=== PATIENT | female | born 1960 | race African-American/Black ===

== ENCOUNTER 2018-10-03 19:28 | Inpatient (IN) | payer OTHER, MEDICAID ==
[~2018-10-03] VITALS: Ht 160 cm; Wt 64.1 kg
[~2018-10-03 19:28] MED LIST: IBUP-779
[2018-10-03 23:37] LABS: CHLORIDE 109 mEq/L (98-107)
[2018-10-03 23:41] LABS: ETHANOL BLOOD < 10 mg/dL
[2018-10-03 23:44] LABS: LDL CHOLESTEROL 127 mg/dL (5-100)
[2018-10-03 23:48] LABS: BASOPHILS % 0.6 % (0.0-2.0); EOSINOPHILS % 2.6 % (0.0-5.0); HEMATOCRIT. 43.8 % (36.0-48.0); HEMOGLOBIN. 14.8 g/dL (12.0-16.0); LYMPHOCYTES % 46.3 % (20.0-50.0); MEAN CORPUSCULAR HEMOGLOBIN 29.8 pg (28.0-32.0); MEAN PLATELET VOLUME 7.7 fl (7.4-10.4); MONOCYTES % 5.9 % (2.0-8.0); NEUTROPHILS % 44.6 % (40.0-76.0); PLATELET 235 x1000/uL (130-400); RED BLOOD CELL COUNT 4.98 mill/uL (4.2-5.4)
[2018-10-04] MEDS ORDERED: ASPIRIN 81MG TABLET PO ONE (01:45)
[2018-10-04 02:37] LABS: CLARITY URINE CLEAR (CLEAR); COLOR URINE YELLOW (YELLOW); KETONES URINE NEGATIVE (NEGATIVE); LEUKOCYTE ESTERASE URINE NEGATIVE (NEGATIVE); NITRITE URINE NEGATIVE (NEGATIVE); OCCULT BLOOD URINE NEGATIVE (NEGATIVE); PH URINE 5.5 (4.5-8.0); PROTEIN URINE NEGATIVE (NEGATIVE); UROBILINOGEN URINE 0.2 E.U./dL (0.2-1.0)
[2018-10-04 02:48] LABS: *AMPHETAMINES SCREEN URINE NEGATIVE (NEGATIVE); *BARBITURATES SCREEN URINE NEGATIVE (NEGATIVE); *BENZODIAZEPINES SCREEN URINE NEGATIVE (NEGATIVE); *COCAINE SCREEN URINE PRESUMTIVE POSITIVE (NEGATIVE); METHADONE URINE SCREEN NEGATIVE (NEGATIVE)
[2018-10-04 02:49] LABS: CANNABINOID URINE SCREEN NEGATIVE (NEGATIVE); OPIATES URINE SCREEN NEGATIVE (NEGATIVE); PHENCYCLIDINE URINE SCREEN NEGATIVE (NEGATIVE)
[2018-10-04 03:32] VITALS: BP 107/73
[2018-10-04 03:35] VITALS: BP 107/73
[2018-10-04] MEDS ORDERED: ACETAMINOPHEN 325MG TABLET PO PRN (05:00)
[2018-10-04] MEDS ORDERED: ONDANSETRON HCL 4MG/2ML INJ IV PRN (05:00)
[2018-10-04] MEDS ORDERED: CLONIDINE 0.1MG TABLET PO PRN (05:00)
[2018-10-04] MEDS ORDERED: DOCUSATE SODIUM 100MG CAPSULE PO PRN (05:00)
[2018-10-04] MEDS ORDERED: MAGNESIUM/ALUMINUM HYDROXIDE/SIMETHICONE 30ML UDC PO PRN (05:00)
[2018-10-04] MEDS ORDERED: HYDROCODONE/ACETAMINOPHEN 5/325MG TABLET PO PRN (05:00)
[2018-10-04] MEDS ORDERED: GUAIFENESIN 200MG/10ML SUGAR FREE UDC PO PRN (05:00)
[2018-10-04 08:00] VITALS: BP 111/61
[2018-10-04] MEDS ORDERED: ASPIRIN 81MG EC TABLET PO SCH (09:00)
[2018-10-04 12:00] VITALS: BP 111/65
[2018-10-04 13:48] VITALS: BP 111/65
[2018-10-04] MEDS ORDERED: ATORVASTATIN CALCIUM 10MG TABLET PO SCH ×2 (21:00)
== END 2018-10-04 14:20 | disposition home or self-care (01) | DRG 948 ==
LOC: ER 19:28 → EDBEDREQ 23:58 → EDBEDREQTM 23:58 → EDBEDREQSVC 23:58 → 6WST 10-04 01:15 → EDBEDREQTM 10-04 01:22 → EDBEDREQDT 10-04 01:22 → EDBEDREQ 10-04 01:22 → ENRESERV 10-04 02:38
PROVIDERS: ADMIT Hospitalist; ATTEND Hospitalist
DX: R53.1 Weakness (principal); R20.0 Anesthesia of skin; E78.5 Hyperlipidemia, unspecified; F19.10 Other psychoactive substance abuse, uncomplicated; F17.200 Nicotine dependence, unspecified, uncomplicated; Z90.49 Acquired absence of other specified parts of digestive tract; Z71.51 Drug abuse counseling and surveillance of drug abuser
CPT/HCPCS: 36415; 70551; 71045; 80305; 80320; 81003; 83721; 84484; 93005; 93970; 99285; G0480

== ENCOUNTER 2019-07-19 14:52 | Inpatient (IN) | payer MEDICAID, OTHER ==
[~2019-07-19] VITALS: Ht 162.6 cm; Wt 59.9 kg
[2019-07-19] MEDS ORDERED: HYDROCODONE/ACETAMINOPHEN 5/325MG TABLET PO STA (16:08)
[2019-07-19] MEDS ORDERED: SODIUM CHLORIDE 0.9% 1,000 ML IV ONE (16:08)
[2019-07-19] MEDS ORDERED: KETOROLAC 30MG/ML VIAL IV STA (16:08)
[2019-07-19] MEDS ORDERED: VANCOMYCIN 1 G PREMIX 200 ML IV ONE (16:15)
[2019-07-19] MEDS ORDERED: PIPERACILLIN/TAZ 3.375G PREMIX 50 ML IV ONE (16:15)
[2019-07-19 17:33] LABS: BASOPHILS % 0.4 % (0.0-2.0); EOSINOPHILS % 0.4 % (0.0-5.0); HEMATOCRIT. 40.1 % (36.0-48.0); HEMOGLOBIN. 13.6 g/dL (12.0-16.0); LYMPHOCYTES % 23.3 % (20.0-50.0); MEAN CORPUSCULAR VOLUME 88.2 fL (81.0-99.0); MEAN PLATELET VOLUME 7.5 fl (7.4-10.4); MONOCYTES % 7.8 % (2.0-8.0); NEUTROPHILS % 68.1 % (40.0-76.0); PLATELET 231 x1000/uL (130-400); RED BLOOD CELL COUNT 4.55 mill/uL (4.2-5.4); RED CELL DISTRIBUTION WIDTH 13.8 % (11.6-14.6)
[2019-07-19 17:36] LABS: CHLORIDE 103 mEq/L (98-107)
[2019-07-19 17:37] LABS: INR 1.1; PROTHROMBIN TIME 11.7 sec (9.6-11.0)
[2019-07-20] VITALS: BP 121/78
[2019-07-20] MEDS ORDERED: MORPHINE SULFATE 2 MG/ML CPJ (NOT FOR IM USE) IV PRN (00:15)
[2019-07-20] MEDS ORDERED: ACETAMINOPHEN 325MG TABLET PO PRN (00:15)
[2019-07-20 00:28] VITALS: BP 121/78
[2019-07-20] MEDS ORDERED: AMPICILLIN SOD/SULBACTAM NA 3 G in SODIUM CHLORIDE 0.9% 100 ML IV SCH (01:00)
[2019-07-20 04:00] VITALS: BP 138/92
[2019-07-20] MEDS: AMPICILLIN SOD/SULBACTAM NA 3 G in SODIUM CHLORIDE 0.9% 100 ML IV SCH ×2 (05:20→12:16)
[2019-07-20 12:00] VITALS: BP 133/73
[2019-07-20] MEDS: LINEZOLID 600 MG PREMIX 300 ML IV SCH (15:26)
[2019-07-20] MEDS ORDERED: TETANUS AND DIPHTHERIA TOX/PF 0.5ML SYR (ADULT) IM ONE (17:15)
[2019-07-20 20:00] VITALS: BP 131/92
[2019-07-20] MEDS ORDERED: HYDROCODONE/ACETAMINOPHEN 5/325MG TABLET PO PRN (21:00)
[2019-07-20 22:00] LABS: BASOPHILS % 0.5 % (0.0-2.0); EOSINOPHILS % 0.1 % (0.0-5.0); HEMATOCRIT. 39.2 % (36.0-48.0); HEMOGLOBIN. 13.9 g/dL (12.0-16.0); LYMPHOCYTES % 19.8 % (20.0-50.0); MEAN CORPUSCULAR VOLUME 87.2 fL (81.0-99.0); MEAN PLATELET VOLUME 6.8 fl (7.4-10.4); MONOCYTES % 10.4 % (2.0-8.0); NEUTROPHILS % 69.2 % (40.0-76.0); PLATELET 235 x1000/uL (130-400); RED BLOOD CELL COUNT 4.49 mill/uL (4.2-5.4); RED CELL DISTRIBUTION WIDTH 13.2 % (11.6-14.6)
[2019-07-21] VITALS: BP 117/80
[2019-07-21 01:13] LABS: *AMPHETAMINES SCREEN URINE NEGATIVE (NEGATIVE); *BARBITURATES SCREEN URINE NEGATIVE (NEGATIVE); *BENZODIAZEPINES SCREEN URINE NEGATIVE (NEGATIVE)
[2019-07-21 01:14] LABS: *COCAINE SCREEN URINE PRESUMTIVE POSITIVE (NEGATIVE); CANNABINOID URINE SCREEN NEGATIVE (NEGATIVE); METHADONE URINE SCREEN NEGATIVE (NEGATIVE); OPIATES URINE SCREEN NEGATIVE (NEGATIVE); PHENCYCLIDINE URINE SCREEN NEGATIVE (NEGATIVE)
[2019-07-21 04:00] VITALS: BP 120/77
[2019-07-21] MEDS: LINEZOLID 600 MG PREMIX 300 ML IV SCH ×2 (05:08→17:33)
[2019-07-21 12:00] VITALS: BP 114/60
[2019-07-21 16:00] VITALS: BP 130/73
[2019-07-21 20:00] VITALS: BP 105/74
[2019-07-22] VITALS: BP 112/69
[2019-07-22 04:00] VITALS: BP 110/63
[2019-07-22] MEDS: LINEZOLID 600 MG PREMIX 300 ML IV SCH ×2 (05:33→17:29)
[2019-07-22 08:00] VITALS: BP 114/68
[2019-07-22 12:00] VITALS: BP 109/62
[2019-07-22 16:00] VITALS: BP 111/67
== END 2019-07-22 19:05 | disposition left against medical advice (07) | DRG 383 ==
LOC: ER 14:52 → EDBEDREQSVC 20:49 → EDBEDREQ 20:49 → EDBEDREQTM 20:49 → UNDOADMIN 21:02 → 6EST 21:02 → MICUSO 21:02
PROVIDERS: ADMIT Internal Medicine; ATTEND Internal Medicine
DX: L03.114 Cellulitis of left upper limb (principal); E44.1 Mild protein-calorie malnutrition; F12.90 Cannabis use, unspecified, uncomplicated; Z53.29 Procedure and treatment not carried out because of patient's decision for other reasons; Z20.828 Contact with and (suspected) exposure to other viral communicable diseases; F14.90 Cocaine use, unspecified, uncomplicated; Z88.1 Allergy status to other antibiotic agents; Z90.49 Acquired absence of other specified parts of digestive tract; Z68.22 Body mass index [BMI] 22.0-22.9, adult; Z71.51 Drug abuse counseling and surveillance of drug abuser
CPT/HCPCS: 36415; 73130; 80053; 80305; 85025; 90714; 93005; 96365; 99285; J0295; J1885; J2020; J2270; J2543; J3370; J7030; J7050; U0003-CS

== ENCOUNTER 2020-10-22 17:57 | Emergency (ER) | payer MEDICAID ==
[~2020-10-22] VITALS: Ht 160 cm; Wt 69.0 kg
[2020-10-23 04:00] VITALS: BP 122/74
[2020-10-23] MEDS ORDERED: ACET-2708 MT (04:36)
== END 2020-10-23 04:11 | disposition home or self-care (01) ==
LOC: ER 17:57
DX: S06.9X0A Unspecified intracranial injury without loss of consciousness, initial encounter (principal); S16.1XXA Strain of muscle, fascia and tendon at neck level, initial encounter; S20.219A Contusion of unspecified front wall of thorax, initial encounter; T40.5X5A Adverse effect of cocaine, initial encounter; I10 Essential (primary) hypertension; F17.210 Nicotine dependence, cigarettes, uncomplicated; V43.52XA Car driver injured in collision with other type car in traffic accident, initial encounter; Y93.9 Activity, unspecified; Y92.410 Unspecified street and highway as the place of occurrence of the external cause; Y92.9 Unspecified place or not applicable; Z90.49 Acquired absence of other specified parts of digestive tract
CPT/HCPCS: 71250; 99285

== ENCOUNTER 2021-11-27 15:56 | Emergency (ER) | payer MEDICAID, OTHER ==
[~2021-11-27] VITALS: Ht 160 cm; Wt 56.0 kg
[~2021-11-27 15:56] MED LIST changes: +ACET-2708 MT; -IBUP-779
[2021-11-27 16:00] VITALS: BP 143/81
== END 2021-11-27 22:11 | disposition left against medical advice (07) ==
LOC: ER 15:56
DX: Z53.21 Procedure and treatment not carried out due to patient leaving prior to being seen by health care provider (principal)

== ENCOUNTER 2022-11-05 03:03 | Emergency (ER) | payer MEDICAID, OTHER ==
[~2022-11-05] VITALS: Ht 167.6 cm; Wt 65.0 kg
[2022-11-05 03:20] VITALS: O2SAT 98
[2022-11-05] MEDS ORDERED: IBUPROFEN 400MG TABLET PO ONE (04:15)
[2022-11-05] MEDS ORDERED: IBUP-2028 MT (05:48)
[2022-11-05 08:10] VITALS: BP 142/86; PULSE 95; RESP 19; TEMP 98.2
== END 2022-11-05 08:40 | disposition home or self-care (01) ==
LOC: ER 03:03 → EDUNIT# 03:03 → ER 08:40
DX: S00.83XA Contusion of other part of head, initial encounter (principal); F17.200 Nicotine dependence, unspecified, uncomplicated; M25.511 Pain in right shoulder; M25.562 Pain in left knee; M25.561 Pain in right knee; W19.XXXA Unspecified fall, initial encounter; Y93.89 Activity, other specified; Y92.89 Other specified places as the place of occurrence of the external cause; Y99.8 Other external cause status
CPT/HCPCS: 73030; 73560; 99284

== ENCOUNTER 2024-01-22 02:43 | Emergency (ER) | payer MEDICAID ==
[~2024-01-22] VITALS: Ht 160 cm; Wt 59.0 kg
[~2024-01-22 02:43] MED LIST changes: +IBUP-2028 MT
[2024-01-22 02:59] VITALS: O2SAT 99
[2024-01-22 03:09] VITALS: TEMP 36.39180
[2024-01-22] MEDS: KETOROLAC 15MG/ML VIAL IM ONE (04:27)
[2024-01-22] MEDS ORDERED: AMOX1TAB16 MT (05:16)
[2024-01-22 05:33] LABS: BASOPHILS % 0.2 % (0.0-2.0); EOSINOPHILS % 0.1 % (0.0-5.0); HEMATOCRIT. 37.2 % (36.0-48.0); HEMOGLOBIN. 12.4 g/dL (12.0-16.0); MEAN CORPUSCULAR HEMOGLOBIN 29.9 pg (28.0-32.0); MEAN CORPUSCULAR HGB CONC 33.3 g/dL (31.0-37.0); MEAN CORPUSCULAR VOLUME 89.8 fL (81.0-99.0); MEAN PLATELET VOLUME 6.9 fl (7.4-10.4); MONOCYTES % 10.5 % (2.0-8.0); NEUTROPHILS % 73.2 % (40.0-76.0); PLATELET 286 x1000/uL (130-400); RED BLOOD CELL COUNT 4.14 mill/uL (4.2-5.4); RED CELL DISTRIBUTION WIDTH 13.2 % (11.6-14.6); WHITE BLOOD COUNT 11.3 x1000/uL (4.5-11.0)
[2024-01-22 05:39] LABS: CHLORIDE 103 mEq/L (98-107); SODIUM 138 mEq/L (136-145)
[2024-01-22 05:40] LABS: CARBON DIOXIDE 27 mEq/L (21-32)
[2024-01-22 05:41] LABS: CALCIUM 9.2 mg/dL (8.7-10.4)
[2024-01-22 05:45] LABS: CREATININE 0.6 mg/dL (0.6-1.0)
[2024-01-22 05:46] LABS: GLUCOSE 108 mg/dL (70-105); UREA NITROGEN BLOOD 10 mg/dL (9-23)
[2024-01-22] MEDS ORDERED: OXYM30SP26 BOTHNSTRLS (05:46)
[2024-01-22] MEDS: POTASSIUM CHLORIDE 20MEQ/PACKET PO ONE (05:56)
[2024-01-22 05:57] VITALS: BP 107/58; PULSE 77; RESP 18; O2SAT 96
== END 2024-01-22 08:02 | disposition home or self-care (01) ==
LOC: ER 03:00
DX: S00.83XA Contusion of other part of head, initial encounter (principal); J32.9 Chronic sinusitis, unspecified; E87.6 Hypokalemia; Z98.890 Other specified postprocedural states; W19.XXXA Unspecified fall, initial encounter; Y93.89 Activity, other specified; Y92.89 Other specified places as the place of occurrence of the external cause; Y99.8 Other external cause status
CPT/HCPCS: 99285; 70450; 71045; 80048; 85025; 36415; 70486; 96372; J1885